=== PATIENT | female | born 2000 | race Caucasian/White ===

== ENCOUNTER 2021-12-22 23:03 | Emergency (ER) | payer MEDICAID ==
[~2021-12-22] VITALS: Ht 152.4 cm; Wt 53.5 kg
[2021-12-22 23:12] VITALS: BP_SYST 130
--- NOTE | 2021-12-22 23:20 | NUR ---
Pt c/o RLQ pain with nausea and urinary frequency since Sunday. Was prescribed Bactrim Sunday but only took it day.
--- NOTE | 2021-12-22 23:43 | NUR ---
Pt in waiting room until bed available. maintenance porter notified and urine sample collected, hcg and dipstick done and UA sent to lab.
[2021-12-23 00:31] LABS: BASOPHILS # (AUTO) 0.1 K/uL (0.0-0.2); BASOPHILS % (AUTO) 0.7 % (0.0-2.0); EOSINOPHILS # (AUTO) 0.2 K/uL (0.0-0.4); EOSINOPHILS % (AUTO) 2.1 % (0.0-4.0); HEMATOCRIT 36.9 % (36-48); LYMPHOCYTES # (AUTO) 2.6 K/uL (1.0-5.5); LYMPHOCYTES % (AUTO) 29.8 % (20.5-51.5); MEAN CORPUSCULAR VOLUME 86 fL (79.0-98.0); MONOCYTES # (AUTO) 0.5 K/uL (0.0-1.0); MONOCYTES % (AUTO) 6.1 % (1.7-9.3); NEUTROPHILS # (AUTO) 5.3 K/uL (1.8-7.7); NEUTROPHILS % (AUTO) 61.3 % (40.0-70.0); PLATELET COUNT (AUTO) 211 K/uL (130-430); RED CELL DISTRIBUTION WIDTH 13.1 % (9.0-15.0); WHITE BLOOD COUNT (AUTO) 8.7 K/uL (4.8-10.8)
[2021-12-23 00:47] LABS: CALCIUM 9.1 mg/dL (8.4-11.0); CREATININE 0.87 mg/dL (0.55-1.30); POTASSIUM 3.7 mmol/L (3.5-5.1)
[2021-12-23 00:53] LABS: ALBUMIN 4.5 g/dL (3.4-4.8); TOTAL BILIRUBIN 0.7 mg/dL (0.0-1.0)
[2021-12-23 00:53] LABS: BILIRUBIN,URINE NEGATIVE (NEGATIVE); BLOOD, URINE 2+ (NEGATIVE); COLOR,URINE YELLOW (YELLOW); GLUCOSE,URINE NEGATIVE (NEGATIVE); KETONES,URINE 2+ (NEGATIVE); LEUKOCYTE ESTERASE ,URINE NEGATIVE (NEGATIVE); NITRITE, URINE NEGATIVE (NEGATIVE); PROTEIN URINE NEGATIVE (NEGATIVE)
[2021-12-23 00:59] LABS: CLARITY/URINE HAZY (CLEAR)
[2021-12-23 01:21] LABS: BACTERIA,URINE RARE /HPF (None Seen); RBC,URINE 0-3 /HPF (0-3); WBC,URINE NONE SEEN /HPF (0-3)
[2021-12-23 01:22] LABS: MUCUS,URINE None Seen /LPF (None Seen)
--- NOTE | 2021-12-23 01:26 | NUR ---
Patient to ER bed 7 to gown for evaluation. Side rails up. Report given to Kayla PRITCHETT(candace).
--- NOTE | 2021-12-23 01:53 | NUR ---
ARACELIS Guajardo at bedside examining patient.
[2021-12-23] MEDS ORDERED: NAPROXEN 250 MG TABLET PO ONE (02:00)
[2021-12-23] MEDS ORDERED: NAPROXEN 250 MG TABLET ONE (02:57)
[2021-12-23] MEDS ORDERED: NAPR-1172 PO (04:53)
[2021-12-23 05:19] VITALS: BP_SYST 119
--- NOTE | 2021-12-23 05:20 | NUR ---
Pt states d/c and Rx education understood. Pt left a/ox4, steady gait. States will f/u with OBGYN.
== END 2021-12-23 05:18 | disposition home or self-care (01) ==
LOC: SED 23:03
DX: E28.2 Polycystic ovarian syndrome (principal); Z79.899 Other long term (current) drug therapy
CPT/HCPCS: 36415; 76856-TC; 80053; 81000; 81025; 85025; 99284